=== PATIENT | female | born 1980 | race Caucasian/White ===

== ENCOUNTER 2020-08-04 12:15 | Outpatient (REF) | payer MEDICAID, SELFPAY ==
--- NOTE | ~2020-08-04 | MM_ITS ---
EXAMINATION: MM SCREENING DIGITAL BREAST TOMOSYNTHESIS, BILATERAL CLINICAL INFORMATION: Screening. Asymptomatic. No prior mammography. Age 40. Family history breast cancer, mother. The lifetime risk of breast cancer based on the Tyrer-Cuzick Model is 28%. COMPARISON: None (current study represents initial baseline exam). TECHNIQUE: Digital breast tomosynthesis is performed in both the craniocaudal and mediolateral oblique views along with computer-aided detection (CAD). Synthesized 2D images are generated from the tomosynthesis. FINDINGS: There are scattered areas of fibroglandular density (ACR BI-RADS breast composition Category b). There are no significant masses, abnormal calcifications, or other abnormalities. There are some benign punctate calcifications mid outer right breast on CC view, consistent with dermal calcifications on tomography. The axilla and skin contours are unremarkable. MM/MM tomosynthesis screening BI IMPRESSION: No mammographic evidence of malignancy. ASSESSMENT: BI-RADS 2: Benign RECOMMENDATION: 1. Routine annual mammography screening. 2. The lifetime risk of breast cancer based on the Tyrer-Cuzick Model is 28%. Additional annual adjunct screening with breast MRI may be of benefit in women with a risk score of 20% or greater. This patient's information was entered into a reminder system with a target due date for their next mammogram.
== END 2020-08-04 12:16 | disposition home or self-care (01) ==
LOC: HO.MAMMO 12:15
PROVIDERS: Visit Provider Internal Medicine Medical Oncology
DX: Z12.31 Encounter for screening mammogram for malignant neoplasm of breast (principal)
CPT/HCPCS: 77063; 77067

== ENCOUNTER 2024-10-14 10:43 | Outpatient (AMB) | payer OTHER, SELFPAY ==
--- OUTSIDE RECORDS SUMMARY | 2024-08-25 07:14 | XMS_ITS ---
Author Organization Yefri Alfonso III, MD Address [address] [place] [address] Care Team Providers Care Drill Grinder Name Role Phone Yefri Alfonso Primary Care Provider REASON FOR VISIT UTI Rx Social History Sex Assigned At : Social History Observation Description Sex Assigned At Female Encounters Encounter Location Date Provider Diagnosis Yefri Alfonso III, MD [address] [place] [address] [place] [id number] 08/25/2024 Yefri Alfonso Plan Of Treatment Next Appt Details Provider Name:Yefri Alfonso, 02/09/2025 10:00:00 AM, [address] [place] [address] [place], [place], [phone], Provider Name:Yefri Alfonso, 10/08/2025 11:00:00 AM, [address] [place] [address] [place], [id number], Progress Notes * Emily LEYVADOB:1980 ( 44 yo F)Acc No.[id number]:08/25/2024 Patient: Oskar DELEONina :1980 A ge:44 Y S ex:Female Address:[address] [place] [id number] * true * Date: Generated for Printi ng/Faxing/eTransmitting on: 0 10/14/2024 11:24 AM EDT
[2024-10-14 10:52] VITALS: BP 120/80; PULSE 83; O2SAT 97; BMI 41.6
--- NOTE | 2024-10-14 10:52 | MHC.OFFVIS ---
Vital Signs 10/14/24 10:52 Height 5 ft 5 in Weight 250 lb 3.594 oz BMI 41.6 BP 120/80 Blood Pressure Location Lt brachial Position Sitting Pulse 83 Pulse Source Pulse Oximeter Pulse Oximetry (%) 97 Oxygen Delivery Method Room Air Intake Visit Reasons: snoring/somnolence Intake Note: pt is here for isael work up, daytime fatigue, snoring Flute Grinder Required: No Allergies codeine Adverse Reaction (Severe, Verified 10/14/24 10:57) headache Medication List - Last Reconciled 10/14/24 by Analilia Beltrán MD amlodipine 10 mg PO DAILY loratadine (Claritin) 10 mg PO DAILY Do you need a note to return to daycare/school/sports/work: No HPI HPI snoring/somnolence: Details: 44 years old female, referred to be evaluated for sleep apnea and management. She works at [employer] and shop and say is that she is on her feet whole day and that in was not a walking. She is has 12 years old daughter who goes to school, Her mother has told her that she always snored during the night. She has hard time in sleeping on her back because she wakes up from sleep. She tends to sleep in lateral. Position most of the time Wakes up with unrefreshed feeling , and feels tired/sleepy during the daytime, if she is not physically active. Because she keeps herself busy in working during the daytime, she does not fall asleep. But on the weekends and also on her days of , she tends to doze of very frequently, especially in the afternoons. Her level of sleepiness is evaluated with [place] Sleepiness Scale , which comes to 03/04. She does not drive, Usually her mom drives and she remains awake to make sure that her mom is driving okay. He is being treated for mild hypertension. She also has history of nasal allergies since her younger age, mostly in the early spring, and also in hot and humid weather. She tends to have nasal congestion with postnasal discharge. She uses loratadine 10 mg p.r.n.. Does not have any history of cough or wheezing . Weight remains up. Though she is on her feet during the daytime, and also claims that she tries to restrict the calories intake, mostly eating veggies and fruits. She has also been told that she has a slight overbite, her dentist wanted to give her braces but she declined. [facility] Medical History (Updated 10/14/24 @ 11:47 by Analilia Beltrán MD) Allergic rhinitis Habitual snoring Somnolence, daytime Morbid obesity Social History Patient Tobacco Use Status: Never used Tobacco Review of Systems Const All systems reviewed & are unremarkable except as noted in HPI and below Reports snoring (Habitual snoring) Eyes Reports no additional complaints ENT Reports nasal congestion and Reports nasal discharge (During allergy seasons) Card Reports no additional complaints Resp Reports no additional complaints and Reports snoring (Habitual snoring) GI Reports no additional complaints Reports no additional complaints Musc Reports no additional complaints Skin/Breast Reports system reviewed and no additional complaints, except as documented Neuro Reports no additional complaints Psych Reports no additional complaints Endo Reports no additional complaints Michael/Lymph Reports no additional complaints Aller/Immun Reports no additional complaints Physical Exam Vital Signs: Last Vital Signs Pulse 83 10/14/24 10:52 BP 120/80 10/14/24 10:52 Pulse Ox 97 10/14/24 10:52 Oxygen Delivery Method Room Air 10/14/24 10:52 BMI result Body Mass Index 41.6 Const General: healthy appearing (Except for being overweight), comfortable, no acute distress, alert and awake Orientation/consciousness: patient oriented x3 HEENT Head: Yes normal to inspection General nose exam: No nasal polyps present and No nasal discharge present Face and sinus: Yes sinuses nontender Mouth: oropharynx abnormals (Narrow and crowded, Mallampati class 4) Teeth and gingiva: other (Does have a mild overbite/ retrognathia of the lower jaw ) Throat: Yes posterior oropharynx normal Eyes General: appearance normal, both eyes and all related structures Neck Neck: Yes normal visual inspection, Yes no lymphadenopathy, Yes trachea midline, Yes no JVD and Yes other (Neck circumference 17 in) Thyroid: Thyroid normal Chest Chest palpation & inspection: normal inspection of the chest, normal palpation of entire chest wall and no tenderness Resp Effort & Inspection: normal respiratory effort Auscultation: clear to auscultation bilaterally, no rhonchi and no wheezes Cardio Palpation: normal PMI Rate: regular rate Rhythm: regular rhythm Heart sounds: no gallops and no murmurs Peripheral pulses: Peripheral pulses 2+ throughout GI Palpation (GI): Soft to palpation, nontender, No hepatosplenomegaly present and no masses Auscultation: normal bowel sounds Back/Spine/Pelvis Thoracic/Lumbar Spine: thoracic and lumbar spine normal to inspection Skin General skin exam: no rashes or lesions noted Neuro General: patient oriented x3 and no focal motor deficits Cranial nerves: Yes CN's II-XII intact bilaterally Extrem General: Yes normal to inspection, Yes no clubbing, cyanosis or edema and Yes no calf tenderness Psych Appearance: grossly normal and well kempt Speech and movement: Normal speech and movement present Assessment & Plan Assessment & Plan (1) Morbid obesity: Comment: This patient has history of being overweight throughout her adult life. Current BMI 41.6 puts her in category of morbid obesity. Code(s): E66.01 - Morbid (severe) obesity due to excess calories Category: Medical Plan: Discussed with her about the obesity, need to watch her diet and lose weight . (2) Somnolence, daytime: Comment: As she does not get good quality sleep at night she does have daytime sleepiness. EPWORTH SLEEPINESS SCALE= 12/24 Code(s): R40.0 - Somnolence Category: Medical Plan: I told her that who , because of her obesity she is at a high risk of obstructive sleep apnea. Presence ofretrognathia adds to it and she is definitely good candidate to have sleep apnea. (3) Habitual snoring: Comment: History of snoring at night since her early adult life. It will be worse if she sleeps in supine position but she is not able to sleep in supine position. Snoring is definitely part of her sleep apnea syndrome . Code(s): R06.83 - Snoring Category: Medical Plan: Discussed with her about snoring and sleep apnea. Will order a home-based sleep study and then manage accordingly. (4) Allergic rhinitis: Comment: She does have mild intermittent, seasonal allergic rhinitis. Has used Claritin 10 mg once a day p.r.n.. Code(s): J30.9 - Allergic rhinitis, unspecified Category: Medical Plan: Advised to continue using Claritin( loratadine) on p.r.n. basis Orders: Orders RT home sleep study Today E66.01 - Morbid (severe) obesity due to excess calories, R06.83 - Snoring, R40.0 - Somnolence Coding Level of Care Code New Pt Level 3 (61807) Diagnoses Morbid obesity E66.01 Somnolence, daytime R40.0 Habitual snoring R06.83 Allergic rhinitis J30.9
--- OUTSIDE RECORDS SUMMARY | 2024-10-14 11:25 | XMS_ITS | Patient Health Record ---
[facility] Address [address] [place] [address] Care Team Providers Care Health Management Consultant Name Role Phone Yefri Alfonso MD Primary Care Provider Unavailab PizarroRebekah Unavailable [phone] Allergies Allergen (clinical drug ingredient) Drug/Non Drug Allergy documented on EMR Reaction Allergy Type Onset Date Status codeine Codeine get a massive headache Drug Allergy Active Reason For Referral No Information Medications Medication SIG (Take, Route, Frequency, Duration) Notes Start Date End Date Status Ciclopirox Olamine 0.77 % 1 application to affected area Externally Twice a day; Duration: 30 days Active Amoxicillin 875 MG TK 1 T PO BID TAT Or al; Duration: 10 Unknown Feldene 20 MG 1 capsule with food Orally Once a day; Duration: 30 day(s) 04/18/2017 Not-Taking Social History Tobacco Use: Social History Observation Description Date Details (start date - stop date) Never Smoker NA - NA Tobacco Use/Smoking Question Answer Notes Are you a: nonsmoker Additional Findings: Tobacco Non-User Current no n-smoker Alcohol Screen Question Answer Notes Did you have a drink containing alcohol in the p ast year? No Points 0 Interpretation Negative Tobacco use other than smoking: Question Answer Notes Are you an other tobacco user? No Problems No Known Problems Plan Of Treatment No Information Insurance Providers Payer Name Payer Address Payer Phone Subscriber Number Group Number Insured Name Patient Relationship to Insured Coverage Start Date Coverage End Date [employer] [id number] [address] [place], [place] [phone] [id number] Marko Leyva Spouse - patient is the spouse of the insured Medical (General) History Medical History History ICD Code Chicken pox Surgical History Surgery Date(Month/Year) D&C
== END 2024-10-14 11:32 | disposition home or self-care (01) ==
PROVIDERS: PCP Internal Medicine Medical Oncology; Referring Provider Internal Medicine Medical Oncology; Visit Provider Internal Medicine
DX: E66.01 Morbid (severe) obesity due to excess calories (principal); R40.0 Somnolence; R06.83 Snoring; J30.9 Allergic rhinitis, unspecified
CPT/HCPCS: 99203

== ENCOUNTER → 2024-10-14 10:43 | Outpatient (BNVA) | payer MEDICAID, SELFPAY | PROVIDERS: PCP Internal Medicine Medical Oncology; Referring Provider Internal Medicine Medical Oncology; Visit Provider Internal Medicine | DX: E66.01 Morbid (severe) obesity due to excess calories (principal); R40.0 Somnolence; R06.83 Snoring; J30.9 Allergic rhinitis, unspecified | CPT/HCPCS: 99202 ==

== ENCOUNTER → 2025-02-16 08:47 | Outpatient (REF) | payer OTHER, SELFPAY | LOC: HO.SL 08:47 | PROVIDERS: PCP Internal Medicine Medical Oncology; Visit Provider Internal Medicine | DX: R06.83 Snoring (principal); E66.01 Morbid (severe) obesity due to excess calories; R40.0 Somnolence | CPT/HCPCS: 95806 ==

== ENCOUNTER → 2025-02-16 09:00 | Outpatient (BNV) | payer OTHER, SELFPAY | PROVIDERS: PCP Internal Medicine Medical Oncology; Visit Provider Psychiatry & Neurology Neurology | DX: G47.33 Obstructive sleep apnea (adult) (pediatric) (principal) | CPT/HCPCS: 95806 ==